=== PATIENT | male | born 1995 | race Caucasian/White ===

== ENCOUNTER 2019-11-05 14:00 | Outpatient (RCR) | payer MEDICAID, SELFPAY | END 2019-11-23 10:26 | disposition home or self-care (01) | LOC: PT.CARL 14:00 | PROVIDERS: Visit Provider Physician Assistant | DX: M25.511 Pain in right shoulder (principal); M54.6 Pain in thoracic spine; M54.5 Low back pain | CPT/HCPCS: 97010; 97014; 97110; 97140; 97163; G0283 ==

== ENCOUNTER 2023-07-30 17:00 | Outpatient (RCR) | payer MEDICAID, SELFPAY | END 2023-09-05 10:40 | disposition home or self-care (01) | LOC: PT 17:00 | PROVIDERS: Visit Provider Orthopaedic Surgery | DX: M79.602 Pain in left arm; S42.40 Unspecified fracture of lower end of humerus | CPT/HCPCS: 97010; 97014; 97110; 97140; 97163; 97164; 97530; G0283 ==